=== PATIENT | female | born 2000 | race Caucasian/White ===

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

== ENCOUNTER 2022-04-22 06:08 | Emergency (ER) | payer MEDICAID, OTHER ==
[~2022-04-22] VITALS: Ht 157.5 cm; Wt 62.3 kg
[2022-04-22] MEDS ORDERED: triamcinolone acetonide 40mg/ml inj IM ONE (08:15)
[2022-04-22] MEDS ORDERED: dexamethasone 4mg/ml inj IM ONE (08:15)
[2022-04-22 08:35] VITALS: BP 122/70
== END 2022-04-22 08:38 | disposition home or self-care (01) ==
LOC: ER 06:09
DX: T78.40XA Allergy, unspecified, initial encounter (principal); L50.9 Urticaria, unspecified; X58.XXXA Exposure to other specified factors, initial encounter
CPT/HCPCS: 96372; 99284; J1100; J3301